=== PATIENT | female | born 1980 | race Caucasian/White ===

== ENCOUNTER 2017-11-28 18:03 | Inpatient (IN) | payer OTHER ==
[~2017-11-28] VITALS: Ht 160 cm; Wt 106.5 kg
[2017-11-28] MEDS ORDERED: MOTRIN800 MG PO (20:11)
[2017-11-28] MEDS ORDERED: HYDROCODON-ACE1 EAC7 PO (20:11)
[2017-11-28] MEDS ORDERED: LISINOPRIL40 MG PO (20:11)
[2017-11-28] MEDS ORDERED: HYDROCHLOROTH12.5 M3 PO (20:11)
[2017-11-28] MEDS ORDERED: MINIPRESS1 MG PO (20:11)
[2017-11-28] MEDS ORDERED: ATORVASTATIN CA20 MG PO (20:12)
[2017-11-28] MEDS ORDERED: OMEPRAZOLE40 M1 PO (20:12)
[2017-11-28] MEDS ORDERED: DULOXETINE HCL20 MG PO (20:12)
[2017-11-28 21:07] LABS: HEMOGLOBIN 13.8 G/DL (11.9-15.5); MCH 32.1 PG (29.0-34.0); MCHC 35.4 G/DL (30.0-36.0); MCV 90.7 FL (83-99); PLATELET COUNT 306 K/uL (156-360); RBC DIS.WIDTH-CV 11.8 % (11.8-14.6); RBC DIS.WIDTH-SD 38.8 % (39-53); WHITE BLOOD COUNT 7.4 K/uL (4.1-10.2)
[2017-11-28 21:15] LABS: CHLORIDE 104 mEq/L (99-109); POTASSIUM 3.6 mEq/L (3.7-5.4); SODIUM 139 mEq/L (136-147)
[2017-11-28 21:17] LABS: GLUCOSE 96 mg/dL (70-99)
[2017-11-28 21:21] LABS: CREATININE 0.7 mg/dL (0.6-1.3); GFR ESTIMATE (CALCULATED) > 59 mL/min/
[2017-11-28 21:22] LABS: UREA NITROGEN (BUN) 12 mg/dL (9-23)
[2017-11-28 21:29] LABS: QUANTITATIVE HCG < 4.0 MIU/ML
[2017-11-29 01:07] VITALS: BP 176/107
== END 2017-11-29 01:08 | disposition left against medical advice (07) | DRG 82 ==
LOC: EME 18:03 → ENRESERV 20:36 → CANRESERV 20:36 → EDOF 20:46 → ENRESERV 20:48 → EDOF 23:56 → ENRESERV 11-29 00:02 → CANRESERV 11-29 00:47 → EDOF 11-29 01:08
PROVIDERS: Physician Assistant
DX: S06.5X9A Traumatic subdural hemorrhage with loss of consciousness of unspecified duration, initial encounter (principal); G93.6 Cerebral edema; S02.119A Unspecified fracture of occiput, initial encounter for closed fracture; I10 Essential (primary) hypertension; E78.00 Pure hypercholesterolemia, unspecified; F17.210 Nicotine dependence, cigarettes, uncomplicated; Z83.3 Family history of diabetes mellitus; Z82.49 Family history of ischemic heart disease and other diseases of the circulatory system; Z80.0 Family history of malignant neoplasm of digestive organs
CPT/HCPCS: 70450; 70553; 72125; 80048; 81003; 84702; 85027; 99281; 99285; J1170; J2270; J2405; J7030